=== PATIENT | male | born 1965 | race Two or more races ===

== ENCOUNTER → 2019-04-12 | Day surgery (SDC) | payer BC ==
[~2019-04-12] MED LIST: HYDROmorphone 2 MG/ML VIAL IV PRN; IBUP200T44 PO; IV RINGERS,LACTATED 1000ML 1,000 ML IV SCH; LIDOCAINE 1% PF 2 ML VIAL. ID PRN; LIDOCAINE 2% PF 5 ML VIAL. ONE; MORPHINE SULFATE 2 MG/ML VIAL. IV PRN; MULT-697 PO; OMEG1CAP38 PO; ONDANSETRON PF 4 MG/2 ML VIAL. IV PRN; PROCHLORPERAZINE 10 MG/2 ML VIAL. IV PRN; PROPOFOL 20 ML IV ONE; TRIA1CAP3 PO; fentaNYL PF VIAL 100 MCG/2 ML VIAL IV PRN
--- NOTE | 2019-04-12 13:09 | CONS ---
DATE OF CONSULTATION: 04/12/2019 GASTROENTEROLOGY CONSULTATION REASON FOR CONSULTATION: Colorectal screening. REFERRING PHYSICIAN: Dr. Lidia Reveles. HISTORY OF PRESENT ILLNESS: A 54-year-old male with past medical history significant for hypertension, who is status post appendectomy and is seen for screening colon exam. Bowel habits are regular without diarrhea or constipation. There has been no melena and/or hematochezia. Weight and appetite are stable. Family history is unrevealing for colon polyps or colon cancers, he is otherwise without additional complaints. PAST MEDICAL HISTORY: Hypertension, appendectomy. ALLERGIES: None. MEDICATIONS: Multivitamins, triamterene/hydrochlorothiazide, ibuprofen, omega 3 fish oil. FAMILY AND SOCIAL HISTORY: He does not drink or smoke at this time. FAMILY HISTORY: Noncontributory. REVIEW OF SYSTEMS: HEENT: There is no decrease in his visual acuity issues. CARDIAC: There is history of hypertension. PULMONARY: No shortness breath, cough, asthma. RENAL: No dysuria, frequency, hematuria. MUSCULOSKELETAL: No history of osteoarthrosis, arthralgias, myalgias. NEUROLOGIC: No stroke or migraine. PSYCHIATRIC: No mood swings, depression, insomnia. HEMATOLOGIC: No bleeding, bruising, coagulopathy. DERMATOLOGIC: No skin rashes or pruritus. GASTROINTESTINAL: See history of present illness. PHYSICAL EXAMINATION: GENERAL: Reveals a well-nourished, well-developed male who is alert, cooperative, in no acute distress. VITAL SIGNS: Temperature is 98.1, pulse 90, respiratory rate 18. HEENT: Normocephalic, atraumatic head. Pupils and extraocular muscles are not tested. Sclerae anicteric. NECK: Supple. LUNGS: Clear. CARDIOVASCULAR: Reveals an S1, S2 without S3, S4 or appreciable murmur. ABDOMEN: Reveals a soft abdomen, normal bowel sounds, without appreciable hepatosplenomegaly and also reveals right lower quadrant appendectomy incision. EXTREMITIES: Reveals no cyanosis, clubbing or edema. IMPRESSION: Colorectal screening is warranted at this time. Risks and benefits of procedure including risk of hemorrhage and perforation were discussed with the patient is willing to proceed at this time. RICH JONES MD DR: [email or web address]/bozena JOB#: [id number] / [id number] LIDIA Sosa MD
[2019-04-12 13:15] VITALS: BP 136/79
== END ==
LOC: ENDOS 11:12
PROVIDERS: ATTEND Internal Medicine Gastroenterology
DX: Z12.11 Encounter for screening for malignant neoplasm of colon (principal); K64.0 First degree hemorrhoids; K63.89 Other specified diseases of intestine; I11.9 Hypertensive heart disease without heart failure; Z87.39 Personal history of other diseases of the musculoskeletal system and connective tissue; Z98.890 Other specified postprocedural states
CPT/HCPCS: 45378; J2001; J2704